=== PATIENT | female | born 1995 | race Caucasian/White ===

== ENCOUNTER 2016-11-10 19:53 | Emergency (ER) | payer MEDICAID ==
[~2016-11-10] VITALS: Ht 165.1 cm; Wt 59.0 kg
[~2016-11-10 19:53] MED LIST: LEVO500T21 PO
[2016-11-10] MEDS ORDERED: SODIUM CHLORIDE 0.9% 1,000 ML IVB ONE (20:55)
[2016-11-10] MEDS ORDERED: PANTOPRAZOLE SODIUM 40 MG/10 ML VIAL IV STA (20:55)
[2016-11-10] MEDS ORDERED: ONDANSETRON HCL 4 MG/2 ML VIAL IV ONE (21:00)
[2016-11-10] MEDS ORDERED: HYDROmorphone HCL 2 MG/ML VL IV ONE (21:00)
[2016-11-10 21:26] LABS: Albumin 4.4 g/dL (3.4-5.0); Amylase 66 U/L (25-115); Anion Gap 11 (5-15); Aspartate Aminotransferase 14 U/L (15-37); BUN/Creatinine Ratio 10.8; Basophils # (auto) 0 uL; Basophils % (auto) 0.4 % (0.0-2.0); Blood Urea Nitrogen 9 mg/dL (7-18); CONDITION Y; Calcium 9.3 mg/dL (8.5-10.1); Carbon Dioxide 22 mmol/L (21-32); Chloride 111 mmol/L (98-107); Eosinophils # (auto) 0 uL; GFR African American 111 mL/min; GFR Non-African American 91 mL/min; Glucose 113 mg/dL (74-106); Hematocrit 39.5 % (36.0-46.0); Hemoglobin 13.2 g/dL (12.2-16.2); Lymphocytes # (auto) 1.1 uL; Lymphocytes % (auto) 9.1 % (10.0-50.0); Mean Corpuscular Hemoglobin 30.8 pg (28.0-32.0); Mean Corpuscular Hgb Conc. 33.4 g/dL (32.0-36.0); Mean Corpuscular Volume 92.2 fL (80.0-100.0); Monocytes # (auto) 0.6 uL; Monocytes % (auto) 4.7 % (0.0-12.0); Neutrophils # (auto) 10.2 uL; Neutrophils % (auto) 85.8 % (37.0-80.0); Platelet Count (auto) 375 10^3/uL (140-450); Potassium 4.2 mmol/L (3.5-5.1); Red Cell Distribution Width 13.2 % (11.6-16.0); Sodium 144 mmol/L (136-145); White Blood Cell 11.9 10^3/uL (4.4-10.8)
[2016-11-10 21:28] LABS: Alkaline Phosphatase 73 U/L (45-117); Bilirubin, Total 0.9 mg/dL (0.2-1.0)
[2016-11-10 22:31] LABS: Urine Bilirubin Negative (Negative); Urine Color Yellow (Yellow); Urine Glucose Normal (Normal); Urine Mucus MODERATE (None Seen); Urine Nitrite Negative (Negative); Urine RBC 5 /hpf (0 - 4); Urine Squamous Epithelial Cell MANY /hpf (<5); Urine Urobilinogen Normal (Negative)
[2016-11-10 22:32] LABS: Urine Blood 2+ /uL (Negative); Urine Ketone 1+ (Negative)
[2016-11-11 02:58] VITALS: BP 106/62
== END 2016-11-11 02:59 | disposition home or self-care (01) ==
LOC: EDBD 19:53 → ER 20:04
DX: K29.70 Gastritis, unspecified, without bleeding (principal); F17.210 Nicotine dependence, cigarettes, uncomplicated; F12.10 Cannabis abuse, uncomplicated; F19.10 Other psychoactive substance abuse, uncomplicated; Z79.899 Other long term (current) drug therapy; Z87.440 Personal history of urinary (tract) infections
CPT/HCPCS: 36415; 74176; 80053; 80307; 80320; 81001; 82150; 83690; 84702; 85025; 96361; 96374; 96375; 99285; C9113; J1170; J2405

== ENCOUNTER 2017-01-02 11:15 | Emergency (ER) | payer MEDICAID ==
[~2017-01-02] VITALS: Ht 165.1 cm; Wt 61.2 kg
[~2017-01-02 11:15] MED LIST changes: +HYDR-4663 PO; -LEVO500T21 PO; +METR500T PO; +ONDA4TAB5 PO
[2017-01-02] MEDS ORDERED: SODIUM CHLORIDE 0.9% 1,000 ML IV ONE (11:45)
[2017-01-02] MEDS ORDERED: MORPHINE SULF INJ 2 MG/ML SYRINGE 1ML IV ONE (11:45)
[2017-01-02] MEDS ORDERED: ONDANSETRON HCL 4 MG/2 ML VIAL IV ONE (11:45)
[2017-01-02] MEDS ORDERED: PANTOPRAZOLE 40 MG/10 ML VIAL IV ONE (11:45)
[2017-01-02 12:04] LABS: Basophils # (auto) 0 uL; Basophils % (auto) 0.5 % (0.0-2.0); CONDITION Y; Eosinophils # (auto) 0.1 uL; Eosinophils % (auto) 1.1 % (0.0-7.0); Hematocrit 42.2 % (36.0-46.0); Lymphocytes # (auto) 2.2 uL; Mean Corpuscular Hemoglobin 30.2 pg (28.0-32.0); Mean Corpuscular Hgb Conc. 33.3 g/dL (32.0-36.0); Mean Corpuscular Volume 90.9 fL (80.0-100.0); Mean Platelet Volume 8.1 fL (7.4-10.4); Monocytes # (auto) 0.8 uL; Monocytes % (auto) 8.9 % (0.0-12.0); Neutrophils % (auto) 65.5 % (37.0-80.0); Platelet Count (auto) 347 10^3/uL (140-450); Red Cell Distribution Width 12.7 % (11.6-16.0); White Blood Cell 9.2 10^3/uL (4.4-10.8)
[2017-01-02 12:31] LABS: Albumin 4.5 g/dL (3.4-5.0); BUN/Creatinine Ratio 14.9; Potassium 3.7 mmol/L (3.5-5.1)
[2017-01-02 12:34] LABS: Bilirubin, Total 0.6 mg/dL (0.2-1.0)
[2017-01-02 14:52] LABS: Urine Bilirubin Negative (Negative); Urine Blood Negative /uL (Negative); Urine Color Yellow (Yellow); Urine Glucose Normal (Normal); Urine Ketone Negative (Negative); Urine Mucus FEW (None Seen); Urine Nitrite Negative (Negative); Urine RBC 1 /hpf (0 - 4); Urine Squamous Epithelial Cell MANY /hpf (<5); Urine Urobilinogen Normal (Negative); Urine pH 6.5 (5.0-8.0)
[2017-01-02 15:38] VITALS: BP 110/78
[2017-01-03] MEDS ORDERED: OMEP20CA74 PO (05:59)
[2017-01-03] MEDS ORDERED: ONDA4TAB5 PO (05:59)
== END 2017-01-02 15:37 | disposition home or self-care (01) ==
LOC: ER 11:15
DX: E86.0 Dehydration (principal); F12.10 Cannabis abuse, uncomplicated; F17.210 Nicotine dependence, cigarettes, uncomplicated; Z87.440 Personal history of urinary (tract) infections
CPT/HCPCS: 36415; 74176; 80053; 80307; 80320; 81001; 81025; 83690; 84702; 85025; 96361; 96374; 96375; 99285; C9113; J2270; J2405; J7030; A4565

== ENCOUNTER 2017-03-01 14:07 | Emergency (ER) | payer MEDICAID ==
[~2017-03-01] VITALS: Ht 165.1 cm; Wt 61.2 kg
[~2017-03-01 14:07] MED LIST changes: -HYDR-4663 PO; +HYDR-4683 PO; -METR500T PO; +OMEP20CA74 PO
[2017-03-01 15:13] LABS: Basophils # (auto) 0 uL; Basophils % (auto) 0.3 % (0.0-2.0); Eosinophils # (auto) 0 uL; Eosinophils % (auto) 0.2 % (0.0-7.0); Hematocrit 43.3 % (36.0-46.0); Hemoglobin 14.5 g/dL (12.2-16.2); Lymphocytes # (auto) 1.7 uL; Lymphocytes % (auto) 16.2 % (10.0-50.0); Mean Corpuscular Hemoglobin 30.5 pg (28.0-32.0); Mean Corpuscular Hgb Conc. 33.5 g/dL (32.0-36.0); Mean Corpuscular Volume 91.3 fL (80.0-100.0); Monocytes # (auto) 0.7 uL; Monocytes % (auto) 7.1 % (0.0-12.0); Neutrophils % (auto) 76.2 % (37.0-80.0); Platelet Count (auto) 260 10^3/uL (140-450); Red Blood Cells 4.75 10^6/uL (4.0-5.20); White Blood Cell 10.4 10^3/uL (4.4-10.8)
[2017-03-01 15:15] LABS: Albumin 4.6 g/dL (3.4-5.0); BUN/Creatinine Ratio 17.9; Bilirubin, Total 1.1 mg/dL (0.2-1.0); Calcium 9.3 mg/dL (8.5-10.1); Total Protein 8.4 g/dL (6.4-8.2)
[2017-03-01] MEDS ORDERED: SODIUM CHLORIDE 0.9% 1,000 ML IVB ONE (15:27)
[2017-03-01] MEDS ORDERED: DONNATAL 5ml ORAL Elix (BELLADONNA ALK-PHENOBARB) PO ONE (15:30)
[2017-03-01] MEDS ORDERED: PROMETHAZINE HCL 25 MG/ML 1ML IV PRN (15:30)
[2017-03-01] MEDS ORDERED: PANTOPRAZOLE 40 MG/10 ML VIAL IV ONE (15:30)
[2017-03-01] MEDS ORDERED: HYDROmorphone HCL 2 MG/ML VL IV ONE (15:30)
[2017-03-01] MEDS ORDERED: ALUM & MAG HYDROX-SIMETH LIQ(MAALOX) 30 ML PO ONE (15:30)
[2017-03-01] MEDS ORDERED: PROMETHAZINE HCL 25 MG/ML 1ML ONE (15:35)
[2017-03-01 15:48] LABS: Magnesium 2.2 mg/dL (1.6-2.6)
[2017-03-01 16:40] LABS: Urine Amorphous Crystal FEW /hpf (None Seen); Urine Bacteria NONE SEEN /hpf (None Seen); Urine Blood 2+ /uL (Negative); Urine Mucus MANY (None Seen); Urine Specific Gravity 1.031 (1.001-1.035); Urine WBC 5 /hpf (0 - 5)
[2017-03-01 18:00] VITALS: BP 120/63
== END 2017-03-01 19:50 | disposition home or self-care (01) ==
LOC: ER 14:07 → EDBD 14:07 → ER 19:50
DX: R10.9 Unspecified abdominal pain (principal); G43.A0 Cyclical vomiting, in migraine, not intractable; F12.929 Cannabis use, unspecified with intoxication, unspecified; F17.210 Nicotine dependence, cigarettes, uncomplicated; Z82.49 Family history of ischemic heart disease and other diseases of the circulatory system
CPT/HCPCS: 36415; 80053; 81001; 83690; 83735; 84443; 84702; 85025; 96361; 96374; 96375; 99285; C9113; J1170; J2550; J7030

== ENCOUNTER 2017-03-05 08:59 | Emergency (ER) | payer MEDICAID ==
[~2017-03-05] VITALS: Ht 160 cm; Wt 63.5 kg
[2017-03-05 09:13] VITALS: BP 105/55
[2017-03-05 09:48] LABS: Basophils # (auto) 0 uL; Basophils % (auto) 0.3 % (0.0-2.0); Eosinophils # (auto) 0.1 uL; Eosinophils % (auto) 0.7 % (0.0-7.0); Hematocrit 40.3 % (36.0-46.0); Hemoglobin 13.6 g/dL (12.2-16.2); Lymphocytes # (auto) 1.2 uL; Lymphocytes % (auto) 11.9 % (10.0-50.0); Mean Corpuscular Hemoglobin 30.3 pg (28.0-32.0); Mean Corpuscular Hgb Conc. 33.8 g/dL (32.0-36.0); Mean Corpuscular Volume 89.5 fL (80.0-100.0); Monocytes # (auto) 0.6 uL; Monocytes % (auto) 5.4 % (0.0-12.0); Neutrophils # (auto) 8.5 uL; Neutrophils % (auto) 81.7 % (37.0-80.0); Nucleated Red Blood Cells % 0.1 %; Platelet Count (auto) 258 10^3/uL (140-450); Red Cell Distribution Width 13.8 % (11.8-14.3); White Blood Cell 10.4 10^3/uL (4.4-10.8)
[2017-03-05 09:48] LABS: Urine WBC None Seen /hpf (0 - 5)
[2017-03-05 09:58] LABS: Urine Amorphous Crystal FEW /hpf (None Seen); Urine Bacteria NONE SEEN /hpf (None Seen); Urine Blood 3+ /uL (Negative); Urine Mucus FEW (None Seen); Urine Specific Gravity 1.014 (1.001-1.035)
[2017-03-05 10:06] LABS: Albumin 4.2 g/dL (3.4-5.0); BUN/Creatinine Ratio 14.1; Bilirubin, Total 0.5 mg/dL (0.2-1.0); Calcium 9.1 mg/dL (8.5-10.1); Potassium 3.8 mmol/L (3.5-5.1); Total Protein 7.6 g/dL (6.4-8.2)
== END 2017-03-05 11:00 | disposition left against medical advice (07) ==
LOC: ER 08:59
DX: R10.9 Unspecified abdominal pain (principal); R11.2 Nausea with vomiting, unspecified; Z53.21 Procedure and treatment not carried out due to patient leaving prior to being seen by health care provider
CPT/HCPCS: 36415; 80053; 81001; 83690; 84702; 85025

== ENCOUNTER 2017-03-06 07:01 | Emergency (ER) | payer MEDICAID ==
[~2017-03-06] VITALS: Ht 162.6 cm; Wt 61.2 kg
[2017-03-06] MEDS ORDERED: PANTOPRAZOLE 40 MG/10 ML VIAL IV STA (07:39)
[2017-03-06] MEDS ORDERED: SODIUM CHLORIDE 0.9% 1,000 ML IVB ONE (07:39)
[2017-03-06 07:43] VITALS: BP 120/60
[2017-03-06] MEDS ORDERED: ONDANSETRON HCL 4 MG/2 ML VIAL IV ONE (07:45)
[2017-03-06] MEDS ORDERED: MORPHINE SULFATE 10 MG/ML INJ 1ML SDV IV ONE (07:45)
== END 2017-03-06 08:13 | disposition home or self-care (01) ==
LOC: ER 07:01
DX: K52.9 Noninfective gastroenteritis and colitis, unspecified (principal); F12.10 Cannabis abuse, uncomplicated; R11.2 Nausea with vomiting, unspecified; F17.210 Nicotine dependence, cigarettes, uncomplicated
CPT/HCPCS: 94761; 96361; 96374; 96375; 99284; C9113; J2270; J2405; J7030

== ENCOUNTER 2017-05-03 17:50 | Emergency (ER) | payer MEDICAID ==
[~2017-05-03] VITALS: Ht 165.1 cm; Wt 59.0 kg
[2017-05-03 18:28] VITALS: BP 127/69
== END 2017-05-03 19:10 | disposition left against medical advice (07) ==
LOC: ER 17:54
DX: R10.9 Unspecified abdominal pain (principal); R11.2 Nausea with vomiting, unspecified; Z53.21 Procedure and treatment not carried out due to patient leaving prior to being seen by health care provider

== ENCOUNTER 2017-09-07 14:04 | Emergency (ER) | payer MEDICAID ==
[~2017-09-07] VITALS: Ht 165.1 cm; Wt 56.7 kg
[2017-09-07] MEDS ORDERED: PANTOPRAZOLE 40 MG/10 ML VIAL IV STA (14:15)
[2017-09-07] MEDS ORDERED: MORPHINE SULFATE 4 MG/ML SYR/VIAL IV ONE (14:15)
[2017-09-07] MEDS ORDERED: METOCLOPRAMIDE HCL 5MG/ml INJ 2ml VIAL IV ONE (14:15)
[2017-09-07] MEDS ORDERED: SODIUM CHLORIDE 0.9% 1,000 ML IVB ONE (14:15)
[2017-09-07 14:52] LABS: Basophils # (auto) 0 uL; Basophils % (auto) 0.2 % (0.0-2.0); Eosinophils # (auto) 0.1 uL; Eosinophils % (auto) 0.6 % (0.0-7.0); Hematocrit 40.7 % (36.0-46.0); Hemoglobin 13.1 g/dL (12.2-16.2); Lymphocytes # (auto) 1.2 uL; Lymphocytes % (auto) 9.3 % (10.0-50.0); Mean Corpuscular Hemoglobin 29.4 pg (28.0-32.0); Mean Corpuscular Hgb Conc. 32.3 g/dL (32.0-36.0); Monocytes # (auto) 0.6 uL; Monocytes % (auto) 4.8 % (0.0-12.0); Neutrophils # (auto) 11.2 uL; Neutrophils % (auto) 85.1 % (37.0-80.0); Platelet Count (auto) 231 10^3/uL (140-450); Red Blood Cells 4.47 10^6/uL (4.0-5.20); Red Cell Distribution Width 13.3 % (11.8-14.3); White Blood Cell 13.1 10^3/uL (4.4-10.8)
[2017-09-07 15:23] LABS: Albumin 4.2 g/dL (3.4-5.0); BUN/Creatinine Ratio 9.5; Bilirubin, Total 0.3 mg/dL (0.2-1.0); Calcium 8.9 mg/dL (8.5-10.1); Magnesium 2.3 mg/dL (1.6-2.6); Potassium 4.2 mmol/L (3.5-5.1); Total Protein 7.5 g/dL (6.4-8.2)
[2017-09-07 15:25] LABS: Urine Bacteria FEW /hpf (None Seen); Urine Blood 1+ /uL (Negative); Urine Mucus FEW (None Seen); Urine Specific Gravity 1.015 (1.001-1.035); Urine WBC 1 /hpf (0 - 5)
[2017-09-07 19:40] VITALS: BP 106/61
== END 2017-09-07 19:53 | disposition home or self-care (01) ==
LOC: EDBD 14:04 → EDUNIT# 14:04 → ER 14:04
DX: K29.70 Gastritis, unspecified, without bleeding (principal); F17.210 Nicotine dependence, cigarettes, uncomplicated; G43.A0 Cyclical vomiting, in migraine, not intractable
CPT/HCPCS: 36415; 80053; 81001; 82150; 83690; 83735; 85025; 94761; 96361; 96374; 96375; 99284; C9113; J2270; J2765; J7030

== ENCOUNTER 2017-09-17 14:35 | Inpatient (IN) | payer MEDICAID ==
[~2017-09-17] VITALS: Ht 30.5 cm; Wt 54.8 kg
[2017-09-17] MEDS ORDERED: SODIUM CHLORIDE 0.9% 1,000 ML IVB ONE (15:00)
[2017-09-17 15:17] LABS: Basophils # (auto) 0 uL; Basophils % (auto) 0.3 % (0.0-2.0); Eosinophils # (auto) 0.1 uL; Eosinophils % (auto) 0.7 % (0.0-7.0); Hemoglobin 12.7 g/dL (12.2-16.2); Lymphocytes % (auto) 12.9 % (10.0-50.0); Mean Corpuscular Hgb Conc. 33.3 g/dL (32.0-36.0); Mean Corpuscular Volume 89.9 fL (80.0-100.0); Monocytes # (auto) 0.5 uL; Monocytes % (auto) 6.6 % (0.0-12.0); Neutrophils % (auto) 79.5 % (37.0-80.0); Nucleated Red Blood Cells % 0.1 %; Platelet Count (auto) 223 10^3/uL (140-450); Red Blood Cells 4.22 10^6/uL (4.0-5.20); Red Cell Distribution Width 13.1 % (11.8-14.3); White Blood Cell 7.5 10^3/uL (4.4-10.8)
[2017-09-17 15:31] LABS: Albumin 4.3 g/dL (3.4-5.0); BUN/Creatinine Ratio 9.3; Bilirubin, Total 0.7 mg/dL (0.2-1.0); Calcium 8.8 mg/dL (8.5-10.1); Potassium 3.7 mmol/L (3.5-5.1); Total Protein 7.4 g/dL (6.4-8.2)
[2017-09-17 16:26] LABS: Urine Bacteria NONE SEEN /hpf (None Seen); Urine Blood 2+ /uL (Negative); Urine Mucus FEW (None Seen); Urine Specific Gravity 1.011 (1.001-1.035); Urine WBC 1 /hpf (0 - 5)
[2017-09-17] MEDS ORDERED: ONDANSETRON HCL 4 MG/2 ML VIAL IV ONE ×2 (16:30→18:30)
[2017-09-17 16:58] LABS: Magnesium 2.1 mg/dL (1.6-2.6)
[2017-09-17] MEDS ORDERED: KETOROLAC TROMETH 30 MG/ML 1ML VIAL IV ONE (17:15)
[2017-09-17] MEDS ORDERED: SODIUM CHLORIDE 0.9% 1,000 ML IV ONE (18:30)
[2017-09-17] MEDS ORDERED: MORPHINE SULFATE 4 MG/ML SYR/VIAL IV ONE (18:30)
[2017-09-17] MEDS ORDERED: GASTROGRAFIN 120 ML SOL ONE (19:12)
[2017-09-17] MEDS ORDERED: PANTOPRAZOLE 40 MG/10 ML VIAL IV ONE (19:15)
[2017-09-17] MEDS ORDERED: GASTROGRAFIN 30 ML SOL ONE (19:15)
[2017-09-17] MEDS ORDERED: NITROGLYCERIN 0.4 MG SL TAB SL PRN (19:15)
[2017-09-17] MEDS ORDERED: MORPHINE SULFATE 8mg/ml INJ SDV IV PRN ×2 (19:15)
[2017-09-17] MEDS ORDERED: cefTRIAXone 1GM/10ml IVPUSH 10 ML IV ONE (19:15)
[2017-09-17] MEDS ORDERED: diphenhdrAMINE HCL 50 MG/1 ML VL ONE (20:14)
[2017-09-17] MEDS ORDERED: diphenhdrAMINE HCL 50 MG/1 ML VL IV ONE (20:15)
[2017-09-17] MEDS ORDERED: methylPREDNISolone SOD SUCC 125 MG/2 ML VL IV ONE (20:15)
[2017-09-17] MEDS ORDERED: ONDANSETRON HCL 4 MG/2 ML VIAL ONE (20:27)
[2017-09-17] MEDS: SODIUM CHLORIDE 0.9% 1,000 ML IV SCH (20:52)
[2017-09-17] MEDS: MORPHINE SULFATE 8mg/ml INJ SDV IV PRN (20:53)
[2017-09-17] MEDS: LORazepam 2MG/ML-1ML VIAL IV PRN (20:53)
[2017-09-17 22:00] VITALS: BP 117/71
[2017-09-17 22:22] VITALS: BP 117/71
[2017-09-18] MEDS: metroNIDAZOLE 500MG/100ML 100 ML IV SCH ×3 (00:19→12:37)
[2017-09-18] MEDS: MORPHINE SULFATE 8mg/ml INJ SDV IV PRN ×4 (01:07→14:33)
[2017-09-18] MEDS: ONDANSETRON HCL 4 MG/2 ML VIAL IV PRN ×5 (01:08→18:37)
[2017-09-18] MEDS: LORazepam 2MG/ML-1ML VIAL IV PRN ×2 (04:18→12:58)
[2017-09-18] MEDS: SODIUM CHLORIDE 0.9% 1,000 ML IV SCH (04:54)
[2017-09-18 05:00] VITALS: BP 111/56
[2017-09-18 07:02] LABS: Basophils # (auto) 0 uL; Basophils % (auto) 0.3 % (0.0-2.0); Eosinophils # (auto) 0 uL; Eosinophils % (auto) 0.6 % (0.0-7.0); Hematocrit 31.4 % (36.0-46.0); Hemoglobin 10.7 g/dL (12.2-16.2); Lymphocytes # (auto) 1.6 uL; Lymphocytes % (auto) 29.4 % (10.0-50.0); Mean Corpuscular Hemoglobin 30.5 pg (28.0-32.0); Mean Corpuscular Volume 89.9 fL (80.0-100.0); Monocytes # (auto) 0.5 uL; Monocytes % (auto) 8.5 % (0.0-12.0); Neutrophils # (auto) 3.4 uL; Neutrophils % (auto) 61.2 % (37.0-80.0); Platelet Count (auto) 174 10^3/uL (140-450); Red Blood Cells 3.49 10^6/uL (4.0-5.20); Red Cell Distribution Width 12.9 % (11.8-14.3); White Blood Cell 5.6 10^3/uL (4.4-10.8)
[2017-09-18 07:57] VITALS: BP 106/60
[2017-09-18 08:00] VITALS: BP 106/60
[2017-09-18] MEDS ORDERED: cefTRIAXone 1GM/10ml IVPUSH 10 ML IV SCH (09:00)
[2017-09-18] MEDS ORDERED: PANTOPRAZOLE 40 MG/10 ML VIAL IV SCH (10:00)
[2017-09-18 11:55] VITALS: BP 102/58
[2017-09-18] MEDS ORDERED: SOD CHL 0.9%/ KCL 20MEQ 1,000 ML IV SCH (12:45)
[2017-09-18 16:01] VITALS: BP 101/57
[2017-09-18] MEDS ORDERED: MORPHINE SULFATE 4 MG/ML SYR/VIAL IV PRN (17:00)
[2017-09-18] MEDS ORDERED: HYDROcodone-ACET 5/325MG TAB PO PRN (17:00)
[2017-09-18] MEDS ORDERED: MORPHINE SULFATE 8mg/ml INJ SDV IV PRN (18:45)
[2017-09-18 18:48] LABS: Alcohol, Urine < 3.0 mg/dL (0-5); Amphetamine Screen, Urine NEGATIVE (NEGATIVE); Barbiturate Scree,Urine NEGATIVE (NEGATIVE); Benzodiazephine Screen, Urine NEGATIVE (NEGATIVE); Cannabinoid Screen, Urine POSITIVE (NEGATIVE); Cocaine Screen, Urine NEGATIVE (NEGATIVE); Opiate Scree,Urine POSITIVE (NEGATIVE); Phencyclidine Screen, Urine NEGATIVE (NEGATIVE)
== END 2017-09-18 21:10 | disposition left against medical advice (07) | DRG 247 ==
LOC: EDBD 14:35 → ER 14:35 → TELE 14:36 → TELE-WESTW 22:20 → WEST WING 09-18 12:57
PROVIDERS: ADMIT Internal Medicine; ATTEND Internal Medicine
DX: K56.1 Intussusception (principal); F11.20 Opioid dependence, uncomplicated; F32.9 Major depressive disorder, single episode, unspecified; F17.210 Nicotine dependence, cigarettes, uncomplicated; K21.9 Gastro-esophageal reflux disease without esophagitis; G89.29 Other chronic pain; F12.90 Cannabis use, unspecified, uncomplicated; F41.9 Anxiety disorder, unspecified; Z53.21 Procedure and treatment not carried out due to patient leaving prior to being seen by health care provider; Z82.49 Family history of ischemic heart disease and other diseases of the circulatory system; Z86.19 Personal history of other infectious and parasitic diseases
CPT/HCPCS: 36415; 71045; 74176; 74250; 80053; 80307; 81001; 81025; 82150; 83690; 83735; 85025; 85652; 87086; 94761; 96361; 96374; 96375; 96376; C9113; J1885; J2270; J2405; J3490

== ENCOUNTER 2017-09-23 09:29 | Emergency (ER) | payer MEDICAID ==
[~2017-09-23] VITALS: Ht 157.5 cm; Wt 55.3 kg
[2017-09-23] MEDS ORDERED: SODIUM CHLORIDE 0.9% 1,000 ML IVB ONE (09:56)
[2017-09-23 10:09] LABS: Basophils # (auto) 0 uL; Basophils % (auto) 0.3 % (0.0-2.0); Eosinophils # (auto) 0.1 uL; Eosinophils % (auto) 0.8 % (0.0-7.0); Hematocrit 36.8 % (36.0-46.0); Hemoglobin 12.3 g/dL (12.2-16.2); Lymphocytes # (auto) 1.5 uL; Lymphocytes % (auto) 11.8 % (10.0-50.0); Mean Corpuscular Hgb Conc. 33.4 g/dL (32.0-36.0); Mean Corpuscular Volume 89.8 fL (80.0-100.0); Monocytes # (auto) 0.7 uL; Monocytes % (auto) 5.6 % (0.0-12.0); Neutrophils # (auto) 10.4 uL; Neutrophils % (auto) 81.5 % (37.0-80.0); Platelet Count (auto) 227 10^3/uL (140-450); Red Cell Distribution Width 13.3 % (11.8-14.3); White Blood Cell 12.8 10^3/uL (4.4-10.8)
[2017-09-23] MEDS: PROMETHAZINE HCL 25 MG/ML 1ML IV PRN ×2 (10:19→16:04)
[2017-09-23 10:24] LABS: Magnesium 2.2 mg/dL (1.6-2.6)
[2017-09-23 10:26] LABS: Albumin 4.2 g/dL (3.4-5.0); BUN/Creatinine Ratio 13.2; Bilirubin, Total 0.3 mg/dL (0.2-1.0); Calcium 8.8 mg/dL (8.5-10.1); Total Protein 7.2 g/dL (6.4-8.2)
[2017-09-23 10:44] LABS: Urine Bacteria FEW /hpf (None Seen); Urine Blood 3+ /uL (Negative); Urine Mucus FEW (None Seen); Urine Specific Gravity 1.023 (1.001-1.035); Urine WBC 5 /hpf (0 - 5)
[2017-09-23 11:07] LABS: Alcohol, Urine < 3.0 mg/dL (0-5); Amphetamine Screen, Urine NEGATIVE (NEGATIVE); Barbiturate Scree,Urine POSITIVE (NEGATIVE); Benzodiazephine Screen, Urine NEGATIVE (NEGATIVE); Cannabinoid Screen, Urine POSITIVE (NEGATIVE); Cocaine Screen, Urine NEGATIVE (NEGATIVE); Opiate Scree,Urine NEGATIVE (NEGATIVE); Phencyclidine Screen, Urine NEGATIVE (NEGATIVE)
[2017-09-23] MEDS ORDERED: PROCHLORPERAZINE EDISYLATE 5 MG/ML 2ML VIAL IV ONE (12:00)
[2017-09-23] MEDS ORDERED: KETOROLAC TROMETH 30 MG/ML 1ML VIAL IV ONE (12:45)
[2017-09-23] MEDS ORDERED: SODIUM CHLORIDE 0.9% 1,000 ML IV ONE (13:00)
[2017-09-23] MEDS ORDERED: IOHEXOL 300 MG/ML 100ML BOTTLE IJ ONE (13:49)
[2017-09-23 18:03] VITALS: BP 148/79
== END 2017-09-23 18:27 | disposition home or self-care (01) ==
LOC: ER 09:35
DX: R10.9 Unspecified abdominal pain (principal); F12.188 Cannabis abuse with other cannabis-induced disorder; F17.210 Nicotine dependence, cigarettes, uncomplicated
CPT/HCPCS: 36415; 74177; 80053; 80307; 81001; 81025; 83690; 83735; 84443; 85025; 96361; 96374; 96375; 99285; J0780; J1885; J2550; J7030; Q9967

== ENCOUNTER 2017-09-30 08:54 | Emergency (ER) | payer MEDICAID ==
[~2017-09-30] VITALS: Ht 165.1 cm; Wt 54.4 kg
[2017-09-30 09:34] LABS: Basophils # (auto) 0 uL; Basophils % (auto) 0.6 % (0.0-2.0); Eosinophils # (auto) 0.1 uL; Eosinophils % (auto) 1.1 % (0.0-7.0); Hematocrit 37.7 % (36.0-46.0); Hemoglobin 12.8 g/dL (12.2-16.2); Lymphocytes # (auto) 1.9 uL; Lymphocytes % (auto) 21.5 % (10.0-50.0); Mean Corpuscular Hemoglobin 30.1 pg (28.0-32.0); Mean Corpuscular Volume 88.5 fL (80.0-100.0); Monocytes # (auto) 0.8 uL; Monocytes % (auto) 8.9 % (0.0-12.0); Neutrophils % (auto) 67.9 % (37.0-80.0); Platelet Count (auto) 294 10^3/uL (140-450); Red Blood Cells 4.27 10^6/uL (4.0-5.20); Red Cell Distribution Width 13.2 % (11.8-14.3); White Blood Cell 8.8 10^3/uL (4.4-10.8)
[2017-09-30 09:58] LABS: BUN/Creatinine Ratio 15.6; Bilirubin, Total 0.3 mg/dL (0.2-1.0); Magnesium 2.4 mg/dL (1.6-2.6); Potassium 3.8 mmol/L (3.5-5.1); Total Protein 7.7 g/dL (6.4-8.2)
[2017-09-30] MEDS ORDERED: SODIUM CHLORIDE 0.9% 1,000 ML IVB ONE (10:37)
[2017-09-30 10:38] VITALS: BP 116/73
[2017-09-30] MEDS ORDERED: PROMETHAZINE HCL 25 MG/ML 1ML IV PRN (10:45)
[2017-09-30] MEDS ORDERED: HYDROmorphone HCL 2 MG/ML VL IV ONE (10:45)
[2017-09-30] MEDS ORDERED: IOHEXOL 300 MG/ML 100ML BOTTLE IJ ONE (11:27)
== END 2017-09-30 15:24 | disposition home or self-care (01) ==
LOC: EDBD 08:54 → ER 09:00
DX: G43.A0 Cyclical vomiting, in migraine, not intractable (principal); G89.4 Chronic pain syndrome; K21.9 Gastro-esophageal reflux disease without esophagitis; F17.210 Nicotine dependence, cigarettes, uncomplicated; F12.10 Cannabis abuse, uncomplicated
CPT/HCPCS: 36415; 74177; 80053; 82150; 83690; 83735; 84702; 85025; 96361; 96374; 96375; 99285; J1170; J2550; J7030; Q9967

== ENCOUNTER 2018-12-21 20:16 | Emergency (ER) | payer MEDICAID ==
[~2018-12-21] VITALS: Ht 167.6 cm; Wt 56.7 kg
[~2018-12-21 20:16] MED LIST changes: -HYDR-4683 PO; +HYDR-4833 PO; +ONDA-144 PO; -ONDA4TAB5 PO
[2018-12-21] MEDS ORDERED: ONDANSETRON HCL 4 MG/2 ML VIAL IV ONE (23:00)
[2018-12-21] MEDS ORDERED: SODIUM CHLORIDE 0.9% 1,000 ML IV ONE ×2 (23:00)
[2018-12-22 00:33] LABS: Basophils # (auto) 0 uL; Basophils % (auto) 0.2 % (0.0-2.0); Eosinophils # (auto) 0 uL; Hematocrit 36.2 % (36.0-46.0); Hemoglobin 11.9 g/dL (12.2-16.2); Lymphocytes # (auto) 0.9 uL; Lymphocytes % (auto) 8.3 % (10.0-50.0); Mean Corpuscular Hemoglobin 28.7 pg (28.0-32.0); Monocytes # (auto) 0.7 uL; Monocytes % (auto) 6.5 % (0.0-12.0); Neutrophils # (auto) 8.8 uL; Platelet Count (auto) 236 10^3/uL (140-450); Red Blood Cells 4.16 10^6/uL (4.0-5.20); Red Cell Distribution Width 14.6 % (11.8-14.3); White Blood Cell 10.4 10^3/uL (4.4-10.8)
[2018-12-22 00:52] LABS: BUN/Creatinine Ratio 12.3; Calcium 8.6 mg/dL (8.5-10.1); Potassium 3.4 mmol/L (3.5-5.1)
[2018-12-22 00:54] LABS: Bilirubin, Total 0.4 mg/dL (0.2-1.0)
[2018-12-22 00:54] LABS: Urine Bacteria FEW /hpf (None Seen); Urine Blood TRACE /uL (Negative); Urine Mucus FEW (None Seen); Urine WBC 1 /hpf (0 - 5)
[2018-12-22 01:02] LABS: Alcohol, Urine < 3.0 mg/dL (0-5); Amphetamine Screen, Urine NEGATIVE (NEGATIVE); Barbiturate Scree,Urine NEGATIVE (NEGATIVE); Benzodiazephine Screen, Urine POSITIVE (NEGATIVE); Cannabinoid Screen, Urine POSITIVE (NEGATIVE); Cocaine Screen, Urine NEGATIVE (NEGATIVE); Opiate Scree,Urine NEGATIVE (NEGATIVE); Phencyclidine Screen, Urine NEGATIVE (NEGATIVE)
[2018-12-22] MEDS ORDERED: LORazepam 2MG/ML-1ML VIAL ONE (01:08)
[2018-12-22] MEDS ORDERED: diphenhdrAMINE HCL 50 MG/1 ML VL ONE (01:08)
[2018-12-22] MEDS ORDERED: HALOPERIDOL LACTATE 5 MG/ML INJ VIAL ONE (01:08)
[2018-12-22] MEDS ORDERED: diphenhdrAMINE HCL 50 MG/1 ML VL IV ONE (01:30)
[2018-12-22] MEDS ORDERED: LORazepam 2MG/ML-1ML VIAL IV ONE (01:30)
[2018-12-22] MEDS ORDERED: HALOPERIDOL LACTATE 5 MG/ML INJ VIAL IM ONE (01:30)
[2018-12-22 10:05] VITALS: BP 109/59
== END 2018-12-22 11:43 | disposition home or self-care (01) ==
LOC: EDBD 20:16 → ER 20:19
DX: F41.8 Other specified anxiety disorders (principal); F15.10 Other stimulant abuse, uncomplicated; F12.188 Cannabis abuse with other cannabis-induced disorder; K21.9 Gastro-esophageal reflux disease without esophagitis; F17.210 Nicotine dependence, cigarettes, uncomplicated; Z79.899 Other long term (current) drug therapy
CPT/HCPCS: 36415; 74176; 80053; 80307; 81001; 85025; 87077; 87186; 87205; 93005; 96361; 96372; 96374; 96375; 99284; J1200; J1630; J2060; J2405; J7030

== ENCOUNTER 2019-02-16 20:58 | Emergency (ER) | payer MEDICAID ==
[~2019-02-16] VITALS: Ht 170.2 cm; Wt 72.6 kg
[2019-02-16] MEDS ORDERED: PROMETHAZINE HCL 25 MG/ML 1ML IV ONE (21:00)
[2019-02-16] MEDS ORDERED: HALOPERIDOL LACTATE 5 MG/ML INJ VIAL IM ONE (21:00)
[2019-02-16] MEDS ORDERED: diphenhdrAMINE HCL 50 MG/1 ML VL IV ONE (21:00)
[2019-02-16] MEDS ORDERED: LORazepam 2MG/ML-1ML VIAL IV ONE (21:00)
[2019-02-16] MEDS ORDERED: diphenhdrAMINE HCL 50 MG/1 ML VL ONE (21:01)
[2019-02-16] MEDS ORDERED: LORazepam 2MG/ML-1ML VIAL ONE (21:02)
[2019-02-16] MEDS ORDERED: HALOPERIDOL LACTATE 5 MG/ML INJ VIAL ONE (21:02)
[2019-02-16] MEDS ORDERED: PROMETHAZINE HCL 25 MG/ML 1ML ONE (21:02)
[2019-02-16 22:27] LABS: Basophils # (auto) 0.1 uL; Basophils % (auto) 0.4 % (0.0-2.0); Eosinophils # (auto) 0 uL; Hematocrit 36.2 % (36.0-46.0); Hemoglobin 12.2 g/dL (12.2-16.2); Lymphocytes # (auto) 0.6 uL; Lymphocytes % (auto) 4.2 % (10.0-50.0); Mean Corpuscular Hemoglobin 29.3 pg (28.0-32.0); Mean Corpuscular Hgb Conc. 33.8 g/dL (32.0-36.0); Mean Corpuscular Volume 86.6 fL (80.0-100.0); Monocytes # (auto) 0.6 uL; Monocytes % (auto) 4.1 % (0.0-12.0); Neutrophils # (auto) 13.7 uL; Neutrophils % (auto) 91.3 % (37.0-80.0); Platelet Count (auto) 294 10^3/uL (140-450); Red Blood Cells 4.18 10^6/uL (4.0-5.20); Red Cell Distribution Width 14.3 % (11.8-14.3)
[2019-02-16 22:43] LABS: INR 1.01 (0.9-1.15); Partial Thromboplastin Time 25.7 sec (23.64-32.05)
[2019-02-16 23:04] LABS: Alcohol, Urine < 3.0 mg/dL (0-5); Amphetamine Screen, Urine NEGATIVE (NEGATIVE); Barbiturate Scree,Urine NEGATIVE (NEGATIVE); Benzodiazephine Screen, Urine NEGATIVE (NEGATIVE); Cannabinoid Screen, Urine POSITIVE (NEGATIVE); Cocaine Screen, Urine NEGATIVE (NEGATIVE); Opiate Scree,Urine NEGATIVE (NEGATIVE); Phencyclidine Screen, Urine NEGATIVE (NEGATIVE)
[2019-02-16 23:05] LABS: Urine Bacteria NONE SEEN /hpf (None Seen); Urine Blood Negative /uL (Negative); Urine Mucus FEW (None Seen); Urine Specific Gravity 1.025 (1.001-1.035); Urine WBC 1 /hpf (0 - 5)
[2019-02-16 23:08] LABS: Alanine Aminotransferase 13 U/L (13-56); Albumin 3.9 g/dL (3.4-5.0); Amylase 69 U/L (25-115); Anion Gap 9 (5-15); Aspartate Aminotransferase 17 U/L (15-37); BUN/Creatinine Ratio 14.5; Blood Urea Nitrogen 11 mg/dL (7-18); Calcium 8.8 mg/dL (8.5-10.1); Carbon Dioxide 26 mmol/L (21-32); Chloride 105 mmol/L (98-107); GFR African American 120 mL/min; GFR Non-African American 99 mL/min; Glucose 102 mg/dL (74-106); Lipase 71 U/L (73-393); Potassium 3.7 mmol/L (3.5-5.1); Sodium 140 mmol/L (136-145)
[2019-02-16 23:13] LABS: Alkaline Phosphatase 86 U/L (45-117); Bilirubin, Total 0.4 mg/dL (0.2-1.0); Total Protein 7.6 g/dL (6.4-8.2)
[2019-02-17] MEDS ORDERED: SODIUM CHLORIDE 0.9% 1,000 ML IV ONE (03:15)
[2019-02-17 06:00] VITALS: BP 97/49
== END 2019-02-17 06:50 | disposition home or self-care (01) ==
LOC: EDBD 20:58 → ER 20:59
DX: F44.9 Dissociative and conversion disorder, unspecified (principal); F41.9 Anxiety disorder, unspecified; R11.15 Cyclical vomiting syndrome unrelated to migraine; K21.9 Gastro-esophageal reflux disease without esophagitis; I10 Essential (primary) hypertension; F17.210 Nicotine dependence, cigarettes, uncomplicated; F12.90 Cannabis use, unspecified, uncomplicated; Z79.899 Other long term (current) drug therapy
CPT/HCPCS: 36415; 80053; 80307; 80320; 81001; 82150; 83605; 83690; 84484; 84702; 85025; 85610; 85730; 96361; 96372; 96374; 96375; 99284; J1200; J1630; J2060; J2550; J7030

== ENCOUNTER 2019-05-29 14:49 | Emergency (ER) | payer MEDICAID ==
[2019-05-29 15:03] VITALS: BP 112/84
[2019-05-29 15:48] LABS: Basophils # (auto) 0 uL; Basophils % (auto) 0.3 % (0.0-2.0); Eosinophils # (auto) 0 uL; Eosinophils % (auto) 0.1 % (0.0-7.0); Hematocrit 38.9 % (36.0-46.0); Hemoglobin 12.9 g/dL (12.2-16.2); Lymphocytes # (auto) 0.8 uL; Lymphocytes % (auto) 5.6 % (10.0-50.0); Mean Corpuscular Hemoglobin 29.4 pg (28.0-32.0); Mean Corpuscular Hgb Conc. 33.1 g/dL (32.0-36.0); Mean Corpuscular Volume 88.8 fL (80.0-100.0); Monocytes # (auto) 0.7 uL; Monocytes % (auto) 5.4 % (0.0-12.0); Neutrophils # (auto) 12.4 uL; Neutrophils % (auto) 88.6 % (37.0-80.0); Platelet Count (auto) 313 10^3/uL (140-450); Red Blood Cells 4.38 10^6/uL (4.0-5.20); Red Cell Distribution Width 13.6 % (11.8-14.3)
[2019-05-29 16:06] LABS: Albumin 3.9 g/dL (3.4-5.0); Calcium 8.8 mg/dL (8.5-10.1); Potassium 3.6 mmol/L (3.5-5.1)
[2019-05-29 16:09] LABS: Bilirubin, Total 0.5 mg/dL (0.2-1.0); Total Protein 7.9 g/dL (6.4-8.2)
[2019-05-29 19:11] LABS: Urine Bacteria NONE SEEN /hpf (None Seen); Urine Blood TRACE /uL (Negative); Urine Mucus FEW (None Seen); Urine Specific Gravity 1.017 (1.001-1.035); Urine WBC 13 /hpf (0 - 5); Urine WBC Clumps PRESENT /hpf (None Seen)
== END 2019-05-29 23:28 | disposition left against medical advice (07) ==
LOC: ER 14:49 → EDBD 14:49 → ER 23:28
DX: R10.9 Unspecified abdominal pain (principal); Z53.21 Procedure and treatment not carried out due to patient leaving prior to being seen by health care provider
CPT/HCPCS: 36415; 80053; 81001; 82150; 83690; 84702; 85025

== ENCOUNTER 2020-05-29 02:09 | Emergency (ER) | payer MEDICAID ==
[~2020-05-29] VITALS: Ht 160 cm; Wt 52.2 kg
[2020-05-29] MEDS ORDERED: LORazepam 2MG/ML-1ML VIAL ONE (02:53)
[2020-05-29] MEDS ORDERED: ONDANSETRON HCL 4 MG/2 ML VIAL ONE (02:55)
[2020-05-29] MEDS ORDERED: ONDANSETRON HCL 4 MG/2 ML VIAL IV ONE (03:00)
[2020-05-29] MEDS ORDERED: LORazepam 2MG/ML-1ML VIAL IV ONE (03:00)
[2020-05-29] MEDS ORDERED: diphenhdrAMINE HCL 50 MG/1 ML VL ONE ×2 (03:03→03:13)
[2020-05-29 03:10] LABS: Basophils # (auto) 0 10 ^3/uL (0-0.2); Basophils % (auto) 0.2 % (0.0-2.0); Eosinophils # (auto) 0.1 10 ^3/uL (0-0.8); Eosinophils % (auto) 0.7 % (0.0-7.0); Hematocrit 40.8 % (36.0-46.0); Hemoglobin 13.9 g/dL (12.2-16.2); Lymphocytes # (auto) 1.7 10 ^3/uL (0.4-5.4); Lymphocytes % (auto) 15.9 % (10.0-50.0); Mean Corpuscular Hemoglobin 31.2 pg (28.0-32.0); Mean Corpuscular Volume 91.9 fL (80.0-100.0); Monocytes # (auto) 0.8 10 ^3/uL (0-1.3); Monocytes % (auto) 7.3 % (0.0-12.0); Neutrophils # (auto) 7.9 10 ^3/uL (1.6-8.6); Neutrophils % (auto) 75.9 % (37.0-80.0); Nucleated Red Blood Cells % 0.1 %; Platelet Count (auto) 280 10^3/uL (140-450); Red Blood Cells 4.45 10^6/uL (4.0-5.20); White Blood Cell 10.4 10^3/uL (4.4-10.8)
[2020-05-29] MEDS ORDERED: HALOPERIDOL LACTATE 5 MG/ML INJ VIAL ONE (03:13)
[2020-05-29] MEDS ORDERED: diphenhdrAMINE HCL 50 MG/1 ML VL IV ONE (03:15)
[2020-05-29] MEDS ORDERED: HALOPERIDOL LACTATE 5 MG/ML INJ VIAL IM ONE (03:15)
[2020-05-29 03:27] LABS: Albumin 4.4 g/dL (3.4-5.0); Calcium 8.7 mg/dL (8.5-10.1); Potassium 3.2 mmol/L (3.5-5.1)
[2020-05-29 03:28] LABS: Salicylate < 1.7 mg/dL (2.8-20.0)
[2020-05-29 03:29] LABS: Acetaminophen < 2.0 ug/mL (10-30)
[2020-05-29 03:32] LABS: Bilirubin, Total 0.6 mg/dL (0.2-1.0); Total Protein 7.9 g/dL (6.4-8.2)
[2020-05-29 11:28] VITALS: BP 101/51
== END 2020-05-29 12:25 | disposition home or self-care (01) ==
LOC: EDBD 02:09 → ER 02:13
DX: F41.9 Anxiety disorder, unspecified (principal); F32.9 Major depressive disorder, single episode, unspecified; K21.9 Gastro-esophageal reflux disease without esophagitis; I10 Essential (primary) hypertension; F17.210 Nicotine dependence, cigarettes, uncomplicated; F12.10 Cannabis abuse, uncomplicated
CPT/HCPCS: 36415; 70450; 80053; 80329; 85025; 99285; J1200; J1630; J2060; J2405

== ENCOUNTER 2022-07-14 10:49 | Emergency (ER) | payer MEDICAID ==
[~2022-07-14] VITALS: Ht 165.1 cm; Wt 60.0 kg
[2022-07-14 11:58] VITALS: BP 111/64
[2022-07-14] MEDS ORDERED: SODIUM CHLORIDE 0.9% 1,000 ML IV ONE (12:30)
[2022-07-14 12:44] LABS: Basophils # (auto) 0 10 ^3/uL (0-0.2); Basophils % (auto) 0.3 % (0.0-2.0); Eosinophils # (auto) 0 10 ^3/uL (0-0.8); Eosinophils % (auto) 0.7 % (0.0-7.0); Hematocrit 39.3 % (36.0-46.0); Hemoglobin 13.2 g/dL (12.2-16.2); Lymphocytes # (auto) 1.3 10 ^3/uL (0.4-5.4); Mean Corpuscular Hemoglobin 30.7 pg (28.0-32.0); Mean Corpuscular Hgb Conc. 33.7 g/dL (32.0-36.0); Mean Corpuscular Volume 90.9 fL (80.0-100.0); Monocytes # (auto) 0.5 10 ^3/uL (0-1.3); Monocytes % (auto) 6.1 % (0.0-12.0); Neutrophils # (auto) 5.7 10 ^3/uL (1.6-8.6); Neutrophils % (auto) 75.9 % (37.0-80.0); Red Blood Cells 4.32 10^6/uL (4.0-5.20); White Blood Cell 7.4 10^3/uL (4.4-10.8)
[2022-07-14 13:07] LABS: Calcium 8.8 mg/dL (8.5-10.1); Potassium 4.3 mmol/L (3.5-5.1)
[2022-07-14 13:13] LABS: BUN/Creatinine Ratio 15.5; Bilirubin, Total 0.3 mg/dL (0.2-1.0); Total Protein 6.8 g/dL (6.4-8.2)
[2022-07-14 13:25] LABS: Urine Bacteria FEW /hpf (None Seen); Urine Blood Negative /uL (Negative); Urine Specific Gravity 1.008 (1.001-1.035); Urine WBC 1 /hpf (0 - 5)
[2022-07-14] MEDS ORDERED: ONDANSETRON HCL 4 MG/2 ML VIAL IV ONE (13:45)
[2022-07-14] MEDS ORDERED: cefTRIAXone 1GM/50ML D5W 50 ML IV ONE (13:45)
[2022-07-14] MEDS ORDERED: CIPR-173 PO (13:51)
[2022-07-14] MEDS ORDERED: DICY10CA PO (13:51)
[2022-07-14] MEDS ORDERED: LOPE7.5C PO (13:51)
== END 2022-07-14 14:12 | disposition home or self-care (01) ==
LOC: ER 10:49
DX: R19.7 Diarrhea, unspecified (principal); N39.0 Urinary tract infection, site not specified; I10 Essential (primary) hypertension; K21.9 Gastro-esophageal reflux disease without esophagitis; F17.210 Nicotine dependence, cigarettes, uncomplicated; Z79.2 Long term (current) use of antibiotics; Z79.899 Other long term (current) drug therapy
CPT/HCPCS: 36415; 74018; 80053; 81001; 81025; 85025; 96361; 96365; 96375; 99284; J0696; J2405; J7030

== ENCOUNTER 2022-08-03 10:27 | Emergency (ER) | payer MEDICAID ==
[~2022-08-03] VITALS: Ht 165.1 cm; Wt 64.0 kg
[~2022-08-03 10:27] MED LIST changes: +CIPR-173 PO; +DICY10CA PO; +LOPE7.5C PO
[2022-08-03 10:42] VITALS: BP 103/63
[2022-08-03 11:09] LABS: Basophils # (auto) 0 10 ^3/uL (0-0.2); Basophils % (auto) 0.2 % (0.0-2.0); Eosinophils # (auto) 0 10 ^3/uL (0-0.8); Eosinophils % (auto) 0.6 % (0.0-7.0); Hematocrit 43.4 % (36.0-46.0); Hemoglobin 14.8 g/dL (12.2-16.2); Lymphocytes # (auto) 1.3 10 ^3/uL (0.4-5.4); Lymphocytes % (auto) 16.8 % (10.0-50.0); Mean Corpuscular Hemoglobin 31.3 pg (28.0-32.0); Monocytes # (auto) 0.5 10 ^3/uL (0-1.3); Monocytes % (auto) 6.4 % (0.0-12.0); Neutrophils # (auto) 5.7 10 ^3/uL (1.6-8.6); Red Blood Cells 4.72 10^6/uL (4.0-5.20); Red Cell Distribution Width 12.8 % (11.8-14.3); White Blood Cell 7.5 10^3/uL (4.4-10.8)
[2022-08-03] MEDS ORDERED: SODIUM CHLORIDE 0.9% 1,000 ML IV ONE (11:15)
[2022-08-03] MEDS ORDERED: MORPHINE SULFATE INJ 2 MG/ml SYRG IV ONE (11:15)
[2022-08-03] MEDS ORDERED: ONDANSETRON HCL 4 MG/2 ML VIAL IV ONE (11:15)
[2022-08-03 11:30] LABS: Albumin 4.6 g/dL (3.4-5.0); Calcium 9.5 mg/dL (8.5-10.1); Potassium 3.8 mmol/L (3.5-5.1)
[2022-08-03 11:33] LABS: BUN/Creatinine Ratio 15.4 (10.0-20.0); Bilirubin, Total 0.8 mg/dL (0.2-1.0)
[2022-08-03 11:48] LABS: Urine Bacteria NONE SEEN /hpf (None Seen); Urine Blood 2+ /uL (Negative); Urine Mucus FEW (None Seen); Urine Specific Gravity 1.022 (1.001-1.035); Urine WBC 22 /hpf (0 - 5)
== END 2022-08-03 17:32 | disposition left against medical advice (07) ==
LOC: ER 10:27
DX: R10.32 Left lower quadrant pain (principal); R11.2 Nausea with vomiting, unspecified; K21.9 Gastro-esophageal reflux disease without esophagitis; I10 Essential (primary) hypertension; F17.210 Nicotine dependence, cigarettes, uncomplicated; F12.10 Cannabis abuse, uncomplicated; Z32.02 Encounter for pregnancy test, result negative
CPT/HCPCS: 36415; 74177; 80053; 81001; 81025; 83690; 85025; 99285; Q9967

== ENCOUNTER 2023-08-26 07:39 | Emergency (ER) | payer SELFPAY ==
[~2023-08-26] VITALS: Ht 165.1 cm; Wt 66.4 kg
[2023-08-26 07:51] VITALS: BP 132/112; PULSE 74; RESP 18; O2SAT 99
[2023-08-26 08:05] LABS: Urine Bacteria None Seen /hpf (None Seen)
[2023-08-26 08:29] LABS: Urine Blood Negative /uL (Negative); Urine Clarity Clear (Clear); Urine Color Colorless (Yellow); Urine Protein, UAD Negative (Negative); Urine Specific Gravity 1.008 (1.001-1.035); Urine Urobilinogen Normal (Negative); Urine WBC 1 /hpf (0 - 5)
[2023-08-26 08:40] LABS: Basophils # (auto) 0 10 ^3/uL (0-0.2); Basophils % (auto) 0.5 % (0.0-2.0); Eosinophils # (auto) 0.1 10 ^3/uL (0-0.8); Eosinophils % (auto) 1.5 % (0.0-7.0); Hematocrit 40.5 % (36.0-46.0); Hemoglobin 13.3 g/dL (12.2-16.2); Lymphocytes # (auto) 1.1 10 ^3/uL (0.4-5.4); Lymphocytes % (auto) 16.4 % (10.0-50.0); Mean Corpuscular Hemoglobin 29.9 pg (28.0-32.0); Mean Corpuscular Hgb Conc. 32.7 g/dL (32.0-36.0); Mean Corpuscular Volume 91.2 fL (80.0-100.0); Monocytes # (auto) 0.6 10 ^3/uL (0-1.3); Monocytes % (auto) 8.1 % (0.0-12.0); Neutrophils # (auto) 5.1 10 ^3/uL (1.6-8.6); Neutrophils % (auto) 73.5 % (37.0-80.0); Red Blood Cells 4.44 10^6/uL (4.0-5.20); Red Cell Distribution Width 12.6 % (11.8-14.3)
[2023-08-26 08:41] LABS: Amphetamine Screen, Urine Neg (NEGATIVE); Barbiturate Scree,Urine Neg (NEGATIVE); Benzodiazephine Screen, Urine Neg (NEGATIVE); Cannabinoid Screen, Urine Pos (NEGATIVE); Cocaine Screen, Urine Neg (NEGATIVE); Opiate Scree,Urine Neg (NEGATIVE); Phencyclidine Screen, Urine Neg (NEGATIVE)
[2023-08-26] MEDS ORDERED: SODIUM CHLORIDE 0.9% 1,000 ML IV ONE (09:00)
[2023-08-26] MEDS ORDERED: ONDANSETRON HCL 4 MG/2 ML VIAL IV ONE (09:00)
== END 2023-08-26 10:38 | disposition left against medical advice (07) ==
LOC: ER 07:39
DX: F12.90 Cannabis use, unspecified, uncomplicated (principal); R11.2 Nausea with vomiting, unspecified; R10.9 Unspecified abdominal pain; R30.0 Dysuria; I10 Essential (primary) hypertension; F41.9 Anxiety disorder, unspecified; F32.9 Major depressive disorder, single episode, unspecified; K21.9 Gastro-esophageal reflux disease without esophagitis; Z79.899 Other long term (current) drug therapy
CPT/HCPCS: 36415; 80307; 81001; 85025

== ENCOUNTER 2023-10-06 08:46 | Inpatient (IN) | payer SELFPAY ==
[~2023-10-06] VITALS: Ht 162.6 cm; Wt 65.7 kg
[2023-10-06 09:05] VITALS: PULSE 79; RESP 18; O2SAT 97
[2023-10-06] MEDS: diphenhdrAMINE HCL 50 MG/1 ML VL IM ONE (09:23)
[2023-10-06] MEDS: HALOPERIDOL LACTATE 5 MG/ML INJ VIAL IM ONE (09:23)
[2023-10-06] MEDS: levETIRAcetam 1000 mg/100ml 100 ML IV ONE (10:10)
[2023-10-06] MEDS: LORazepam 2MG/ML-1ML VIAL IV ONE (10:10)
[2023-10-06 10:36] LABS: Basophils # (auto) 0 10 ^3/uL (0-0.2); Basophils % (auto) 0.1 % (0.0-2.0); Eosinophils # (auto) 0 10 ^3/uL (0-0.8); Hematocrit 36.2 % (36.0-46.0); Hemoglobin 12.2 g/dL (12.2-16.2); Lymphocytes # (auto) 0.4 10 ^3/uL (0.4-5.4); Lymphocytes % (auto) 2.6 % (10.0-50.0); Mean Corpuscular Hemoglobin 30.4 pg (28.0-32.0); Mean Corpuscular Hgb Conc. 33.6 g/dL (32.0-36.0); Mean Corpuscular Volume 90.5 fL (80.0-100.0); Monocytes # (auto) 0.6 10 ^3/uL (0-1.3); Monocytes % (auto) 3.4 % (0.0-12.0); Neutrophils # (auto) 15.9 10 ^3/uL (1.6-8.6); Neutrophils % (auto) 93.9 % (37.0-80.0); Red Cell Distribution Width 12.8 % (11.8-14.3); White Blood Cell 16.9 10^3/uL (4.4-10.8)
[2023-10-06 10:38] LABS: Chloride 108 mmol/L (98-107); Potassium 3.3 mmol/L (3.5-5.1); Sodium 140 mmol/L (136-145)
[2023-10-06 10:39] LABS: Anion Gap 7 (5-15); Calcium 9.6 mg/dL (8.5-10.1); Carbon Dioxide 25 mmol/L (20-30)
[2023-10-06 10:44] LABS: Blood Alcohol < 3.0 mg/dL (<10); Blood Urea Nitrogen 10 mg/dL (9-23); Glucose 135 mg/dL (74-106)
[2023-10-06] MEDS ORDERED: HYDROcodone-ACET 5/325MG TAB PO PRN (14:15)
[2023-10-06] MEDS ORDERED: ACETAMINOPHEN 500 MG TAB PO PRN (14:15)
[2023-10-06] MEDS: SOD CHL 0.9%/ KCL 40MEQ 1,000 ML IV ONE (14:39)
[2023-10-06 20:00] VITALS: PULSE 80; RESP 18; O2SAT 97
[2023-10-06 21:00] VITALS: BP 98/46; PULSE 66; RESP 16; TEMP 99.2; O2SAT 96
[2023-10-06] MEDS: PIPERACILLIN-TAZOB 3.375GM 100 ML IV SCH (21:36)
[2023-10-07] VITALS (8 sets, daily range): BP systolic 96–130; BP diastolic 50–67; PULSE 73–104; RESP 16–17; TEMP 98.3–100.5; O2SAT 95–98
[2023-10-07] MEDS: ONDANSETRON HCL 4 MG/2 ML VIAL IV PRN (08:10)
[2023-10-07] MEDS: MORPHINE SULFATE INJ 2 MG/ml SYRG IV PRN (08:11)
[2023-10-07 10:10] LABS: Basophils # (auto) 0 10 ^3/uL (0-0.2); Basophils % (auto) 0.1 % (0.0-2.0); Eosinophils # (auto) 0 10 ^3/uL (0-0.8); Eosinophils % (auto) 0.2 % (0.0-7.0); Hematocrit 35.6 % (36.0-46.0); Lymphocytes # (auto) 1.3 10 ^3/uL (0.4-5.4); Lymphocytes % (auto) 11.3 % (10.0-50.0); Mean Corpuscular Hemoglobin 30.9 pg (28.0-32.0); Mean Corpuscular Hgb Conc. 33.8 g/dL (32.0-36.0); Mean Corpuscular Volume 91.5 fL (80.0-100.0); Monocytes # (auto) 0.7 10 ^3/uL (0-1.3); Monocytes % (auto) 6.2 % (0.0-12.0); Neutrophils # (auto) 9.4 10 ^3/uL (1.6-8.6); Neutrophils % (auto) 82.2 % (37.0-80.0); Red Blood Cells 3.89 10^6/uL (4.0-5.20); Red Cell Distribution Width 13.2 % (11.8-14.3); White Blood Cell 11.4 10^3/uL (4.4-10.8)
[2023-10-07 10:27] LABS: Alanine Aminotransferase 19 U/L (7-40); Albumin 4.4 g/dL (3.2-4.8); Alkaline Phosphatase 51 U/L (46-116); Anion Gap 7 (5-15); Aspartate Aminotransferase 22 U/L (13-40); BUN/Creatinine Ratio 14.3 (10.0-20.0); Bilirubin, Total 0.9 mg/dL (0.2-1.0); Blood Urea Nitrogen 10 mg/dL (9-23); Calcium 9.2 mg/dL (8.5-10.1); Carbon Dioxide 24 mmol/L (20-30); Chloride 111 mmol/L (98-107); Creatine Kinase IFCC 388 U/L (34-145); Glucose 95 mg/dL (74-106); Potassium 3.4 mmol/L (3.5-5.1); Sodium 142 mmol/L (136-145); Total Protein 6.7 g/dL (5.7-8.2)
[2023-10-07] MEDS: LORazepam 0.5 MG TAB PO PRN (12:49)
[2023-10-07] MEDS ORDERED: LORazepam 0.5 MG TAB PO ONE (21:00)
[2023-10-07] MEDS: LORazepam 2MG/ML-1ML VIAL IV PRN (21:11)
[2023-10-07] MEDS ORDERED: LORazepam 0.5 MG TAB PO PRN (21:30)
[2023-10-07] MEDS ORDERED: LORazepam 2MG/ML-1ML VIAL IV PRN (21:30)
[2023-10-07] MEDS: levETIRAcetam 500 MG TAB PO SCH (22:23)
[2023-10-08 01:00] VITALS: BP 103/54; PULSE 69; RESP 17; TEMP 98.6; O2SAT 97
[2023-10-08 05:00] VITALS: BP 92/49; PULSE 75; RESP 16; TEMP 97.5; O2SAT 97
[2023-10-08 05:27] VITALS: BP 105/58; PULSE 75; RESP 19
[2023-10-08 08:00] VITALS: O2SAT 97
[2023-10-08] MEDS ORDERED: SERTRALINE HCL 50 MG TAB PO SCH (10:00)
== END 2023-10-08 08:29 | disposition left against medical advice (07) | DRG 101 ==
LOC: ER 08:46 → OVERFLOW 14:18 → CENTRAL 16:58
PROVIDERS: ADMIT Internal Medicine; ATTEND Internal Medicine
DX: G40.909 Epilepsy, unspecified, not intractable, without status epilepticus (principal); E87.6 Hypokalemia; I10 Essential (primary) hypertension; R73.9 Hyperglycemia, unspecified; Z53.29 Procedure and treatment not carried out because of patient's decision for other reasons; R41.3 Other amnesia; F41.9 Anxiety disorder, unspecified; K21.9 Gastro-esophageal reflux disease without esophagitis; D72.829 Elevated white blood cell count, unspecified; Z79.899 Other long term (current) drug therapy; Z82.49 Family history of ischemic heart disease and other diseases of the circulatory system
CPT/HCPCS: 36415; 70450; 71045; 74018; 80048; 80053; 80320; 82140; 82550; 84702; 85025; 96365; 96372; 99291; G0378; J2405; J2543

== ENCOUNTER 2023-10-16 03:23 | Emergency (ER) | payer SELFPAY ==
[~2023-10-16] VITALS: Ht 165.1 cm; Wt 64.7 kg
[2023-10-16 03:23] VITALS: BP 117/67; RESP 20; O2SAT 94
[2023-10-16 04:11] LABS: Basophils # (auto) 0 10 ^3/uL (0-0.2); Basophils % (auto) 0.4 % (0.0-2.0); Eosinophils # (auto) 0 10 ^3/uL (0-0.8); Hematocrit 38.1 % (36.0-46.0); Hemoglobin 12.9 g/dL (12.2-16.2); Lymphocytes # (auto) 0.7 10 ^3/uL (0.4-5.4); Lymphocytes % (auto) 7.5 % (10.0-50.0); Mean Corpuscular Hemoglobin 30.6 pg (28.0-32.0); Mean Corpuscular Hgb Conc. 33.8 g/dL (32.0-36.0); Mean Corpuscular Volume 90.6 fL (80.0-100.0); Monocytes # (auto) 0.3 10 ^3/uL (0-1.3); Monocytes % (auto) 3.3 % (0.0-12.0); Neutrophils # (auto) 8.1 10 ^3/uL (1.6-8.6); Neutrophils % (auto) 88.8 % (37.0-80.0); Red Cell Distribution Width 13.2 % (11.8-14.3); White Blood Cell 9.2 10^3/uL (4.4-10.8)
[2023-10-16 04:26] VITALS: PULSE 94
[2023-10-16 04:27] LABS: Alanine Aminotransferase 12 U/L (7-40); Albumin 4.8 g/dL (3.2-4.8); Alkaline Phosphatase 49 U/L (46-116); Anion Gap 6 (5-15); Aspartate Aminotransferase < 8 U/L (13-40); BUN/Creatinine Ratio 12.5 (10.0-20.0); Bilirubin, Total 0.5 mg/dL (0.2-1.0); Blood Urea Nitrogen 9 mg/dL (9-23); Calcium 10.1 mg/dL (8.7-10.4); Carbon Dioxide 22 mmol/L (20-30); Chloride 110 mmol/L (98-107); Glucose 107 mg/dL (74-106); Lipase 43 U/L (12-53); Potassium 3.5 mmol/L (3.5-5.1); Sodium 138 mmol/L (136-145); Total Protein 7.5 g/dL (5.7-8.2)
[2023-10-16 04:48] LABS: Urine Bacteria None Seen /hpf (None Seen)
[2023-10-16 05:02] LABS: Urine Blood Negative /uL (Negative); Urine Clarity Clear (Clear); Urine Color Light-Yellow (Yellow); Urine Protein, UAD Negative (Negative); Urine Specific Gravity 1.013 (1.001-1.035); Urine Urobilinogen Normal (Negative); Urine WBC 1 /hpf (0 - 5); Urine pH 8.5 (5.0-9.0)
[2023-10-16 05:31] LABS: Amphetamine Screen, Urine Neg (NEGATIVE)
[2023-10-16 05:32] LABS: Barbiturate Scree,Urine Neg (NEGATIVE); Benzodiazephine Screen, Urine Neg (NEGATIVE); Cannabinoid Screen, Urine Pos (NEGATIVE); Cocaine Screen, Urine Neg (NEGATIVE); Opiate Scree,Urine Neg (NEGATIVE); Phencyclidine Screen, Urine Neg (NEGATIVE)
[2023-10-16] MEDS ORDERED: PROCHLORPERAZINE EDISYLATE 5 MG/ML 2ML VIAL IV ONE (06:00)
[2023-10-16] MEDS ORDERED: SODIUM CHLORIDE 0.9% 1,000 ML IV ONE (06:00)
[2023-10-16] MEDS ORDERED: KETOROLAC TROMETH 30 MG/ML 1ML VIAL IV ONE (06:00)
== END 2023-10-16 07:47 | disposition left against medical advice (07) ==
LOC: ER 03:23
DX: R10.32 Left lower quadrant pain (principal); R10.2 Pelvic and perineal pain; F12.90 Cannabis use, unspecified, uncomplicated; K21.9 Gastro-esophageal reflux disease without esophagitis; I10 Essential (primary) hypertension; Z79.899 Other long term (current) drug therapy
CPT/HCPCS: 36415; 80053; 80307; 81001; 83690; 84702; 85025; 93005

== ENCOUNTER 2023-11-24 17:08 | Emergency (ER) | payer SELFPAY ==
[~2023-11-24] VITALS: Ht 165.1 cm; Wt 63.6 kg
[2023-11-24 17:45] VITALS: PULSE 88; RESP 20; O2SAT 94
[2023-11-24] MEDS: diphenhdrAMINE HCL 50 MG/1 ML VL IV ONE ×2 (18:09→18:15)
[2023-11-24] MEDS: LORazepam 2MG/ML-1ML VIAL IV ONE ×2 (18:15→18:31)
[2023-11-24] MEDS ORDERED: HALOPERIDOL LACTATE 5 MG/ML INJ VIAL IV PRN (18:15)
[2023-11-24] MEDS: SODIUM CHLORIDE 0.9% 1,000 ML IV ONE (18:15)
[2023-11-24] MEDS: HALOPERIDOL LACTATE 5 MG/ML INJ VIAL ONE (18:29)
[2023-11-24] MEDS: diphenhdrAMINE HCL 50 MG/1 ML VL ONE (18:30)
[2023-11-24] MEDS: LORazepam 2MG/ML-1ML VIAL ONE (18:31)
[2023-11-24 18:45] LABS: Basophils # (auto) 0 10 ^3/uL (0-0.2); Basophils % (auto) 0.4 % (0.0-2.0); Eosinophils # (auto) 0 10 ^3/uL (0-0.8); Eosinophils % (auto) 0.3 % (0.0-7.0); Hematocrit 36.6 % (36.0-46.0); Hemoglobin 12.4 g/dL (12.2-16.2); Lymphocytes # (auto) 1.3 10 ^3/uL (0.4-5.4); Lymphocytes % (auto) 12.2 % (10.0-50.0); Mean Corpuscular Hemoglobin 30.8 pg (28.0-32.0); Mean Corpuscular Volume 90.7 fL (80.0-100.0); Monocytes # (auto) 0.7 10 ^3/uL (0-1.3); Monocytes % (auto) 6.5 % (0.0-12.0); Neutrophils # (auto) 8.5 10 ^3/uL (1.6-8.6); Neutrophils % (auto) 80.6 % (37.0-80.0); Red Blood Cells 4.04 10^6/uL (4.0-5.20); Red Cell Distribution Width 13.1 % (11.8-14.3); White Blood Cell 10.6 10^3/uL (4.4-10.8)
[2023-11-24 18:57] LABS: Chloride 107 mmol/L (98-107); Potassium 3.1 mmol/L (3.5-5.1); Sodium 140 mmol/L (136-145)
[2023-11-24 18:58] LABS: Anion Gap 11 (5-15); Calcium 9.3 mg/dL (8.7-10.4); Carbon Dioxide 22 mmol/L (20-30)
[2023-11-24 19:03] LABS: BUN/Creatinine Ratio 12.2 (10.0-20.0); Blood Alcohol < 3.0 mg/dL (<10); Blood Urea Nitrogen 9 mg/dL (9-23); Glucose 108 mg/dL (74-106)
[2023-11-24 19:04] LABS: Acetaminophen < 2.0 UG/ML (10.0-20.0)
[2023-11-24 19:09] LABS: Salicylate < 3.0 mg/dL (2.8-20.0)
[2023-11-24 19:10] VITALS: PULSE 80; RESP 18; O2SAT 100
[2023-11-25 04:45] LABS: Urine Bacteria None Seen /hpf (None Seen)
[2023-11-25 04:59] LABS: Amphetamine Screen, Urine Neg (NEGATIVE); Barbiturate Scree,Urine Neg (NEGATIVE); Benzodiazephine Screen, Urine Neg (NEGATIVE); Cannabinoid Screen, Urine Pos (NEGATIVE); Cocaine Screen, Urine Neg (NEGATIVE); Opiate Scree,Urine Neg (NEGATIVE); Phencyclidine Screen, Urine Neg (NEGATIVE)
[2023-11-25 05:10] LABS: Urine Blood TRACE /uL (Negative); Urine Color Yellow (Yellow); Urine Mucus MODERATE (None Seen); Urine Protein, UAD TRACE (Negative); Urine Specific Gravity 1.026 (1.001-1.035); Urine Urobilinogen Normal (Negative); Urine WBC 3 /hpf (0 - 5)
[2023-11-25 05:15] LABS: Urine Clarity Hazy (Clear)
[2023-11-25] MEDS: HALOPERIDOL LACTATE 5 MG/ML INJ VIAL IV ONE (06:14)
[2023-11-25] MEDS: diphenhdrAMINE HCL 50 MG/1 ML VL IV ONE ×2 (06:47→15:08)
[2023-11-25 08:00] VITALS: PULSE 56; RESP 18; O2SAT 99
[2023-11-25 19:25] VITALS: PULSE 63; RESP 16; O2SAT 98
[2023-11-26 09:24] VITALS: BP 91/46; PULSE 95; RESP 14; TEMP 98.6; O2SAT 97
== END 2023-11-26 09:42 | disposition home or self-care (01) ==
LOC: EDBD 17:08 → ER 17:08
DX: R41.82 Altered mental status, unspecified (principal); R41.0 Disorientation, unspecified; F23 Brief psychotic disorder; K21.9 Gastro-esophageal reflux disease without esophagitis; F32.9 Major depressive disorder, single episode, unspecified; I10 Essential (primary) hypertension; F12.90 Cannabis use, unspecified, uncomplicated; Z79.899 Other long term (current) drug therapy
CPT/HCPCS: 36415; 80048; 80307; 80320; 80329; 81001; 85025; 96361; 96374; 96375; 96376; 99285; J1200; J1630; J2060; J7030

== ENCOUNTER 2023-12-19 09:47 | Inpatient (IN) | payer SELFPAY ==
[~2023-12-19] VITALS: Ht 165.1 cm; Wt 66.4 kg
[2023-12-19] MEDS: levETIRAcetam 1000 mg/100ml 100 ML IV ONE (10:45)
[2023-12-19 10:50] LABS: Basophils # (auto) 0 10 ^3/uL (0-0.2); Basophils % (auto) 0.6 % (0.0-2.0); Eosinophils # (auto) 0.1 10 ^3/uL (0-0.8); Eosinophils % (auto) 2.2 % (0.0-7.0); Hematocrit 36.1 % (36.0-46.0); Hemoglobin 12.1 g/dL (12.2-16.2); Lymphocytes # (auto) 0.8 10 ^3/uL (0.4-5.4); Lymphocytes % (auto) 14.3 % (10.0-50.0); Mean Corpuscular Hemoglobin 30.7 pg (28.0-32.0); Mean Corpuscular Hgb Conc. 33.6 g/dL (32.0-36.0); Mean Corpuscular Volume 91.3 fL (80.0-100.0); Monocytes # (auto) 0.4 10 ^3/uL (0-1.3); Neutrophils # (auto) 4.5 10 ^3/uL (1.6-8.6); Neutrophils % (auto) 75.9 % (37.0-80.0); Nucleated Red Blood Cells % 0.1 %; Platelet Count (auto) 275 10^3/uL (140-450); Red Blood Cells 3.95 10^6/uL (4.0-5.20); Red Cell Distribution Width 12.9 % (11.8-14.3); White Blood Cell 5.9 10^3/uL (4.4-10.8)
[2023-12-19 11:09] LABS: Alanine Aminotransferase 15 U/L (7-40); Albumin 4.2 g/dL (3.2-4.8); Alkaline Phosphatase 51 U/L (46-116); Anion Gap 4 (5-15); Aspartate Aminotransferase < 8 U/L (13-40); BUN/Creatinine Ratio 17.6 (10.0-20.0); Blood Urea Nitrogen 13 mg/dL (9-23); Calcium 9.5 mg/dL (8.7-10.4); Carbon Dioxide 28 mmol/L (20-30); Chloride 108 mmol/L (98-107); Glucose 96 mg/dL (74-106); Magnesium 1.7 mg/dL (1.6-2.6); Potassium 3.9 mmol/L (3.5-5.1); Sodium 140 mmol/L (136-145)
[2023-12-19 11:10] LABS: Bilirubin, Total 0.3 mg/dL (0.2-1.0); Total Protein 6.6 g/dL (5.7-8.2)
[2023-12-19 12:14] LABS: Amphetamine Screen, Urine Neg (NEGATIVE); Barbiturate Scree,Urine Neg (NEGATIVE); Benzodiazephine Screen, Urine Neg (NEGATIVE)
[2023-12-19 12:15] LABS: Cannabinoid Screen, Urine Pos (NEGATIVE); Cocaine Screen, Urine Neg (NEGATIVE); Opiate Scree,Urine Neg (NEGATIVE); Phencyclidine Screen, Urine Neg (NEGATIVE)
[2023-12-19 12:21] LABS: Urine Bacteria FEW /hpf (None Seen); Urine Blood 3+ /uL (Negative); Urine Clarity Turbid (Clear); Urine Color Colorless (Yellow); Urine Protein, UAD Negative (Negative); Urine Specific Gravity 1.005 (1.001-1.035); Urine Urobilinogen Normal (Negative); Urine WBC 2 /hpf (0 - 5); Urine pH 7.5 (5.0-9.0)
[2023-12-19] MEDS: SODIUM CHLORIDE 0.9% 1,000 ML IV ONE (14:31)
[2023-12-19] MEDS ORDERED: ACETAMINOPHEN 325 MG TAB PO PRN (14:45)
[2023-12-19] MEDS ORDERED: DOCUSATE SOD 100 MG CAP PO PRN (14:45)
[2023-12-19] MEDS ORDERED: NITROGLYCERIN 0.4 MG SL TAB SL PRN (16:00)
[2023-12-19] MEDS: HYDROcodone-ACET 5/325MG TAB PO PRN (16:24)
[2023-12-19] MEDS: ONDANSETRON HCL 4 MG/2 ML VIAL IV PRN (17:51)
[2023-12-19] MEDS: MORPHINE SULFATE INJ 2 MG/ml SYRG IV PRN (17:51)
[2023-12-19 20:00] VITALS: PULSE 73; RESP 22; O2SAT 95
[2023-12-19] MEDS: levETIRAcetam 1000 mg/100ml 100 ML IV SCH (22:46)
[2023-12-19] MEDS: SODIUM CHLOR 0.9% PF (SALINE LOCK) 10ML VIAL/SYR IV SCH (22:47)
[2023-12-19 23:57] VITALS: BP 108/79; PULSE 71; RESP 17; TEMP 98; O2SAT 95
[2023-12-20] VITALS (9 sets, daily range): BP systolic 106–120; BP diastolic 58–79; PULSE 46–86; RESP 14–20; TEMP 97–98.4; O2SAT 93–97
[2023-12-20 07:09] LABS: Basophils # (auto) 0 10 ^3/uL (0-0.2); Basophils % (auto) 0.4 % (0.0-2.0); Eosinophils # (auto) 0.1 10 ^3/uL (0-0.8); Eosinophils % (auto) 2.3 % (0.0-7.0); Hematocrit 33.2 % (36.0-46.0); Hemoglobin 11.2 g/dL (12.2-16.2); Lymphocytes # (auto) 1.5 10 ^3/uL (0.4-5.4); Lymphocytes % (auto) 23.8 % (10.0-50.0); Mean Corpuscular Hemoglobin 30.7 pg (28.0-32.0); Mean Corpuscular Hgb Conc. 33.9 g/dL (32.0-36.0); Mean Corpuscular Volume 90.6 fL (80.0-100.0); Monocytes # (auto) 0.5 10 ^3/uL (0-1.3); Monocytes % (auto) 8.5 % (0.0-12.0); Neutrophils # (auto) 4.1 10 ^3/uL (1.6-8.6); Nucleated Red Blood Cells % 0.2 %; Platelet Count (auto) 242 10^3/uL (140-450); Red Blood Cells 3.67 10^6/uL (4.0-5.20); Red Cell Distribution Width 12.6 % (11.8-14.3); White Blood Cell 6.3 10^3/uL (4.4-10.8)
[2023-12-20 07:30] LABS: Alanine Aminotransferase 12 U/L (7-40); Albumin 3.9 g/dL (3.2-4.8); Alkaline Phosphatase 47 U/L (46-116); Anion Gap 6 (5-15); Aspartate Aminotransferase 9 U/L (13-40); BUN/Creatinine Ratio 11.3 (10.0-20.0); Blood Urea Nitrogen 7 mg/dL (9-23); Calcium 8.9 mg/dL (8.7-10.4); Carbon Dioxide 25 mmol/L (20-30); Chloride 110 mmol/L (98-107); Glucose 89 mg/dL (74-106); Potassium 3.3 mmol/L (3.5-5.1); Sodium 141 mmol/L (136-145)
[2023-12-20 07:31] LABS: Bilirubin, Total 0.3 mg/dL (0.2-1.0)
[2023-12-20] MEDS: POTASSIUM EFFERVESENT TAB 25 MEQ PO ONE (07:45)
[2023-12-20 08:35] LABS: Thyroid Stimulating Hormone 1.27 uIU/mL (0.55-4.78)
[2023-12-20 08:37] LABS: Beta HCG, Quantitative 0.6 mIU/mL (1.5-4.2)
[2023-12-20] MEDS ORDERED: METOCLOPRAMIDE HCL 5MG/ml INJ 2ml VIAL IV PRN (08:45)
[2023-12-20] MEDS: LORazepam 2MG/ML-1ML VIAL IV PRN (08:45)
[2023-12-20] MEDS: KETOROLAC TROMETH 30 MG/ML 1ML VIAL IV PRN (09:29)
[2023-12-20] MEDS: SOD CHL 0.9%/ KCL 40MEQ 1,000 ML IV SCH (09:34)
[2023-12-20] MEDS: METOCLOPRAMIDE HCL 5MG/ml INJ 2ml VIAL IV ONE (09:35)
[2023-12-20] MEDS ORDERED: LORazepam 2MG/ML-1ML VIAL IV PRN (21:30)
[2023-12-20] MEDS: levETIRAcetam 500 MG TAB PO SCH (21:58)
[2023-12-21 01:00] VITALS: BP 117/74; PULSE 60; RESP 18; TEMP 98.1; O2SAT 96
[2023-12-21 06:36] LABS: Anion Gap 6 (5-15); Carbon Dioxide 24 mmol/L (20-30); Chloride 112 mmol/L (98-107); Potassium 4.1 mmol/L (3.5-5.1); Sodium 142 mmol/L (136-145)
[2023-12-21 06:38] LABS: Calcium 8.8 mg/dL (8.7-10.4)
[2023-12-21 06:42] LABS: Glucose 94 mg/dL (74-106)
[2023-12-21 06:43] LABS: BUN/Creatinine Ratio 12.1 (10.0-20.0); Blood Urea Nitrogen 7 mg/dL (9-23)
[2023-12-21 07:31] VITALS: RESP 16; O2SAT 96
[2023-12-21 08:00] VITALS: PULSE 71
[2023-12-21] MEDS: LORazepam 2MG/ML-1ML VIAL IV PRN (08:31)
[2023-12-21 09:00] VITALS: BP 130/69; PULSE 64; RESP 20; TEMP 98.9; O2SAT 96
[2023-12-21] MEDS: PANTOPRAZOLE 40 MG/10 ML VIAL INJ IV SCH (09:16)
[2023-12-21] MEDS: levETIRAcetam 500 MG TAB PO ONE (11:15)
[2023-12-21 13:00] VITALS: BP 111/59; PULSE 68; RESP 18; TEMP 98; O2SAT 99
[2023-12-21] MEDS ORDERED: levETIRAcetam 500 MG TAB PO SCH (22:00)
== END 2023-12-21 15:39 | disposition left against medical advice (07) | DRG 101 ==
LOC: ER 09:47 → EDBD 09:47 → TELE 15:52 → TELE-WESTW 23:52
PROVIDERS: ADMIT Internal Medicine Geriatric Medicine; ATTEND Internal Medicine Geriatric Medicine
DX: G40.409 Other generalized epilepsy and epileptic syndromes, not intractable, without status epilepticus (principal); G40.909 Epilepsy, unspecified, not intractable, without status epilepticus; E87.6 Hypokalemia; Z53.29 Procedure and treatment not carried out because of patient's decision for other reasons; I10 Essential (primary) hypertension; E55.9 Vitamin D deficiency, unspecified; D64.9 Anemia, unspecified; F41.9 Anxiety disorder, unspecified; K21.9 Gastro-esophageal reflux disease without esophagitis; Z82.49 Family history of ischemic heart disease and other diseases of the circulatory system; Z79.899 Other long term (current) drug therapy
CPT/HCPCS: 36415; 70450; 70551; 71045; 80048; 80053; 80307; 81001; 81025; 82306; 82607; 83605; 83735; 84443; 84484; 84702; 85025; 87081; 95819; 96365; G0378; J1885; J2405; J2470